=== PATIENT | female | born 1990 | race Asian ===

== ENCOUNTER → 2016-09-07 | Outpatient (CLI) | payer OTHER | END | disposition home or self-care (01) | LOC: C.LABSPEC 12:44 | PROVIDERS: ATTEND Family Medicine | DX: Z11.3 Encounter for screening for infections with a predominantly sexual mode of transmission (principal); Z11.1 Encounter for screening for respiratory tuberculosis ==

== ENCOUNTER → 2016-09-20 | Outpatient (CLI) | payer OTHER ==
[2016-09-22 08:21] LABS: QUANTIF TB AG-NIL <0.00 IU/ML; QUANTIFERON NIL 0.16 IU/ML
== END | disposition home or self-care (01) ==
LOC: C.LABSPEC 15:20
PROVIDERS: ATTEND Family Medicine
DX: Z02.89 Encounter for other administrative examinations (principal)